=== PATIENT | male | born 1985 | race Caucasian/White ===

== ENCOUNTER 2017-01-02 18:37 | Emergency (ER) | payer OTHER ==
[2017-01-02] MEDS ORDERED: Diprivan 20 ML ONE ×2 (20:08→20:56)
--- NOTE | 2017-01-02 20:15 | RAD ---
TWO VIEWS RIGHT SHOULDER: Date: 01-02-17 History: Dislocation right shoulder. FINDINGS: There is an anterior right shoulder dislocation identified. The right humeral head is dislocated inf eriorly and medially with respect to the glenoid with the humeral head lying beneath the coricoid pr ocess of the shoulder. No fracture is seen on this exam. Coracoclavicular and acromioclavicular dist ances are within normal limits. IMPRESSION: Right anterior shoulder dislocation. POS: [facility]
[2017-01-02] MEDS ORDERED: Ketorolac Tromethamine 30 MG/ML VIAL ONE (21:14)
--- NOTE | 2017-01-02 21:31 | RAD ---
TWO VIEWS RIGHT SHOULDER: Date: 01-02-17 History: Reduction of previously seen shoulder dislocation. FINDINGS: There is no acute fracture or dislocation on this examination. There has been interval reduction of the previously noted right anterior shoulder dislocation. There is defect in the posterolateral aspe ct of the right humeral head consistent with a Hill-Sachs deformity. IMPRESSION: 1. Interval reduction of previously noted right anterior shoulder dislocation. There is no dislocati on or fracture seen on this exam. 2. Hill-Sachs deformity right humeral head. POS: [facility]
== END 2017-01-02 21:40 | disposition home or self-care (01) ==
LOC: ERS 18:37
DX: S43.014A Anterior dislocation of right humerus, initial encounter (principal); J45.909 Unspecified asthma, uncomplicated; Z87.891 Personal history of nicotine dependence; Z79.899 Other long term (current) drug therapy; X50.9XXA Other and unspecified overexertion or strenuous movements or postures, initial encounter
CPT/HCPCS: 23650; 93005; 96361; 96374; 99152; 99153; J1885; J2704